=== PATIENT | female | born 1990 | race Two or more races ===

== ENCOUNTER 2021-05-02 12:30 | Emergency (ER) | payer MEDICAID, OTHER ==
[~2021-05-02] VITALS: Ht 160 cm; Wt 81.6 kg
[2021-05-02 14:34] LABS: Basophils # (auto) 0.1 10 ^3/uL (0-0.2); Basophils % (auto) 0.7 % (0.0-2.0); Eosinophils # (auto) 0.1 10 ^3/uL (0-0.8); Eosinophils % (auto) 1.5 % (0.0-7.0); Hemoglobin 13.1 g/dL (12.2-16.2); Lymphocytes # (auto) 2.3 10 ^3/uL (0.4-5.4); Lymphocytes % (auto) 30.5 % (10.0-50.0); Mean Corpuscular Hgb Conc. 33.5 g/dL (32.0-36.0); Mean Corpuscular Volume 83.5 fL (80.0-100.0); Monocytes # (auto) 0.3 10 ^3/uL (0-1.3); Monocytes % (auto) 3.7 % (0.0-12.0); Neutrophils # (auto) 4.7 10 ^3/uL (1.6-8.6); Neutrophils % (auto) 63.6 % (37.0-80.0); Nucleated Red Blood Cells % 0.1 %; Red Blood Cells 4.67 10^6/uL (4.0-5.20); Red Cell Distribution Width 14.2 % (11.8-14.3); White Blood Cell 7.5 10^3/uL (4.4-10.8)
[2021-05-02 15:19] LABS: Albumin 4.1 g/dL (3.4-5.0); BUN/Creatinine Ratio 23.1; Bilirubin, Total 0.4 mg/dL (0.2-1.0); Calcium 9.5 mg/dL (8.5-10.1); Total Protein 8.4 g/dL (6.4-8.2)
[2021-05-02 17:00] VITALS: BP 124/71
== END 2021-05-02 17:12 | disposition home or self-care (01) ==
LOC: ER 12:30
DX: K21.9 Gastro-esophageal reflux disease without esophagitis (principal); Z88.6 Allergy status to analgesic agent
CPT/HCPCS: 36415; 76705; 80053; 83690; 85025

== ENCOUNTER → 2021-07-11 | Outpatient (CLI) | payer MEDICAID ==
[2021-07-11 11:32] LABS: Basophils # (auto) 0 10 ^3/uL (0-0.2); Basophils % (auto) 0.2 % (0.0-2.0); Eosinophils # (auto) 0 10 ^3/uL (0-0.8); Eosinophils % (auto) 0.5 % (0.0-7.0); Hemoglobin 12.1 g/dL (12.2-16.2); Lymphocytes # (auto) 1.7 10 ^3/uL (0.4-5.4); Lymphocytes % (auto) 21.1 % (10.0-50.0); Mean Corpuscular Hemoglobin 28.1 pg (28.0-32.0); Mean Corpuscular Hgb Conc. 32.8 g/dL (32.0-36.0); Mean Corpuscular Volume 85.7 fL (80.0-100.0); Monocytes # (auto) 0.2 10 ^3/uL (0-1.3); Monocytes % (auto) 2.5 % (0.0-12.0); Neutrophils # (auto) 6.1 10 ^3/uL (1.6-8.6); Neutrophils % (auto) 75.7 % (37.0-80.0); Red Blood Cells 4.31 10^6/uL (4.0-5.20); Red Cell Distribution Width 14.5 % (11.8-14.3)
[2021-07-11 11:50] LABS: Amphetamine Screen, Urine NEGATIVE (NEGATIVE); Barbiturate Scree,Urine NEGATIVE (NEGATIVE); Benzodiazephine Screen, Urine NEGATIVE (NEGATIVE); Cannabinoid Screen, Urine NEGATIVE (NEGATIVE); Cocaine Screen, Urine NEGATIVE (NEGATIVE); Opiate Scree,Urine NEGATIVE (NEGATIVE); Phencyclidine Screen, Urine NEGATIVE (NEGATIVE)
[2021-07-12 07:07] LABS: RPR Non Reactive (Non Reactive)
== END | disposition home or self-care (01) ==
LOC: LAB 10:30
PROVIDERS: ATTEND Obstetrics & Gynecology
DX: Z31.430 Encounter of female for testing for genetic disease carrier status for procreative management (principal); Z34.00 Encounter for supervision of normal first pregnancy, unspecified trimester; Z36.0 Encounter for antenatal screening for chromosomal anomalies; N39.0 Urinary tract infection, site not specified
CPT/HCPCS: 36415; 80307; 83036; 84112; 84702; 85025; 86592; 86703; 86762; 86850; 86900; 86901; 87086; 87340

== ENCOUNTER → 2021-11-01 | Outpatient (CLI) | payer MEDICAID ==
[2021-11-01 09:04] LABS: Basophils # (auto) 0 10 ^3/uL (0-0.2); Basophils % (auto) 0.2 % (0.0-2.0); Eosinophils # (auto) 0.1 10 ^3/uL (0-0.8); Eosinophils % (auto) 0.7 % (0.0-7.0); Hematocrit 33.5 % (36.0-46.0); Hemoglobin 10.8 g/dL (12.2-16.2); Lymphocytes # (auto) 1.8 10 ^3/uL (0.4-5.4); Lymphocytes % (auto) 23.7 % (10.0-50.0); Mean Corpuscular Hemoglobin 27.1 pg (28.0-32.0); Mean Corpuscular Hgb Conc. 32.3 g/dL (32.0-36.0); Mean Corpuscular Volume 84.1 fL (80.0-100.0); Monocytes # (auto) 0.3 10 ^3/uL (0-1.3); Monocytes % (auto) 3.4 % (0.0-12.0); Neutrophils # (auto) 5.5 10 ^3/uL (1.6-8.6); Nucleated Red Blood Cells % 0.1 %; Red Blood Cells 3.98 10^6/uL (4.0-5.20); Red Cell Distribution Width 14.4 % (11.8-14.3); White Blood Cell 7.6 10^3/uL (4.4-10.8)
== END | disposition home or self-care (01) ==
LOC: LAB 08:46
PROVIDERS: ATTEND Obstetrics & Gynecology
DX: Z34.80 Encounter for supervision of other normal pregnancy, unspecified trimester (principal); O99.810 Abnormal glucose complicating pregnancy
CPT/HCPCS: 36415; 82951; 83036; 85025

== ENCOUNTER 2021-12-16 03:47 | Emergency (ER) | payer MEDICAID ==
[~2021-12-16] VITALS: Ht 160 cm; Wt 214.0 kg
[2021-12-16] MEDS ORDERED: AMOX-277 PO (07:07)
[2021-12-16] MEDS ORDERED: ACET-1080 PO (07:07)
[2021-12-16 07:15] VITALS: BP 118/64
[2021-12-16] MEDS ORDERED: ACETAMINOPHEN 500 MG TAB PO ONE (07:15)
== END 2021-12-16 07:25 | disposition home or self-care (01) ==
LOC: ER 03:47
DX: H66.93 Otitis media, unspecified, bilateral (principal); Z88.6 Allergy status to analgesic agent

== ENCOUNTER → 2022-01-04 | Outpatient (CLI) | payer MEDICAID ==
[~2022-01-04] MED LIST: ACET-1080 PO; AMOX-277 PO
[2022-01-04 09:54] LABS: Basophils # (auto) 0 10 ^3/uL (0-0.2); Eosinophils # (auto) 0.1 10 ^3/uL (0-0.8); Lymphocytes # (auto) 1.9 10 ^3/uL (0.4-5.4); Mean Corpuscular Hemoglobin 26.8 pg (28.0-32.0); Monocytes # (auto) 0.3 10 ^3/uL (0-1.3)
[2022-01-04 09:56] LABS: Basophils % (auto) 0.3 % (0.0-2.0); Hematocrit 32.8 % (36.0-46.0); Hemoglobin 10.6 g/dL (12.2-16.2); Lymphocytes % (auto) 25.9 % (10.0-50.0); Mean Corpuscular Hgb Conc. 32.4 g/dL (32.0-36.0); Mean Corpuscular Volume 82.7 fL (80.0-100.0); Monocytes % (auto) 4.2 % (0.0-12.0); Neutrophils % (auto) 68.6 % (37.0-80.0); Nucleated Red Blood Cells % 0.1 %; Red Blood Cells 3.97 10^6/uL (4.0-5.20); Red Cell Distribution Width 15.1 % (11.8-14.3); White Blood Cell 7.3 10^3/uL (4.4-10.8)
[2022-01-05 06:06] LABS: RPR Non Reactive (Non Reactive)
== END | disposition home or self-care (01) ==
LOC: LAB 09:40
PROVIDERS: ATTEND Obstetrics & Gynecology
DX: Z11.3 Encounter for screening for infections with a predominantly sexual mode of transmission (principal)
CPT/HCPCS: 36415; 85025; 86592

== ENCOUNTER 2022-01-15 00:10 | Inpatient (IN) | payer MEDICAID ==
[~2022-01-15] VITALS: Ht 160 cm; Wt 97.1 kg
[2022-01-15] MEDS ORDERED: PROMETHAZINE HCL 25 MG/ML 1ML IV PRN (00:30)
[2022-01-15] MEDS ORDERED: LIDOCAINE 2%HCL (LOCAL ANESTH.) INJ 10ml MDV IJ PRN (00:30)
[2022-01-15] MEDS ORDERED: LACT. RINGERS/OXYTOCIN 20UNITS 500 ML IV ONE ×2 (00:45→01:15)
[2022-01-15] MEDS: LACTATED RINGER'S 1,000 ML IV SCH ×2 (01:00→06:41)
[2022-01-15] MEDS ORDERED: LIDOCAINE 2%HCL (LOCAL ANESTH.) INJ 20ML MDV ONE (01:03)
[2022-01-15] MEDS: DERMOPLAST 60ML BOTTLE TOP PRN ×2 (01:09→13:19)
[2022-01-15] MEDS: PHISODERM TOP SOLN 240ML BTL TOP PRN ×2 (01:09→13:20)
[2022-01-15] MEDS: WITCH HAZEL-GLYCERIN PAD TOP PRN ×2 (01:09→13:20)
[2022-01-15 01:33] LABS: Alcohol, Urine < 3.0 mg/dL (0-10); Amphetamine Screen, Urine NEGATIVE (NEGATIVE); Barbiturate Scree,Urine NEGATIVE (NEGATIVE); Benzodiazephine Screen, Urine NEGATIVE (NEGATIVE); Cannabinoid Screen, Urine NEGATIVE (NEGATIVE); Cocaine Screen, Urine NEGATIVE (NEGATIVE); Opiate Scree,Urine NEGATIVE (NEGATIVE); Phencyclidine Screen, Urine NEGATIVE (NEGATIVE)
[2022-01-15 01:40] LABS: Basophils # (auto) 0.1 10 ^3/uL (0-0.2); Basophils % (auto) 0.6 % (0.0-2.0); Eosinophils # (auto) 0 10 ^3/uL (0-0.8); Eosinophils % (auto) 0.3 % (0.0-7.0); Hematocrit 30.5 % (36.0-46.0); Hemoglobin 10.3 g/dL (12.2-16.2); Lymphocytes % (auto) 25.4 % (10.0-50.0); Mean Corpuscular Hemoglobin 27.5 pg (28.0-32.0); Mean Corpuscular Hgb Conc. 33.9 g/dL (32.0-36.0); Mean Corpuscular Volume 81.2 fL (80.0-100.0); Monocytes # (auto) 0.3 10 ^3/uL (0-1.3); Monocytes % (auto) 3.7 % (0.0-12.0); Neutrophils # (auto) 5.4 10 ^3/uL (1.6-8.6); Red Blood Cells 3.76 10^6/uL (4.0-5.20); Red Cell Distribution Width 15.8 % (11.8-14.3); White Blood Cell 7.8 10^3/uL (4.4-10.8)
[2022-01-15 01:56] LABS: INR 0.93 (0.9-1.15); Partial Thromboplastin Time 27.3 sec (24.6-33.4)
[2022-01-15 01:58] LABS: Albumin 2.7 g/dL (3.4-5.0); Calcium 8.7 mg/dL (8.5-10.1); Potassium 3.7 mmol/L (3.5-5.1)
[2022-01-15 02:02] LABS: Bilirubin, Total 0.3 mg/dL (0.2-1.0); Total Protein 7.1 g/dL (6.4-8.2)
[2022-01-15 02:10] LABS: Urine Bacteria NONE SEEN /hpf (None Seen); Urine Blood 3+ /uL (Negative); Urine Mucus FEW (None Seen); Urine Specific Gravity 1.023 (1.001-1.035); Urine WBC 11 /hpf (0 - 5)
[2022-01-15] MEDS ORDERED: ROPIVACAINE HCL 200 ML EPI SCH ×2 (03:00→07:15)
[2022-01-15] MEDS ORDERED: fentaNYL CITRATE 100 MCG/2 ML VL IV ONE ×3 (03:00→07:15)
[2022-01-15] MEDS ORDERED: ePHEDrine SULFATE 50 MG/ML AMP IV ONE ×2 (03:00→07:15)
[2022-01-15] MEDS ORDERED: NALOXONE HCL 0.4 MG/ML VIAL IV ONE ×2 (03:00→07:15)
[2022-01-15] MEDS ORDERED: LACTATED RINGER'S 1,000 ML IV ONE (03:00)
[2022-01-15] MEDS ORDERED: LIDOCAINE HCL 2 %PF INJ 10ML AMP IJ ONE (03:00)
[2022-01-15] MEDS ORDERED: SODIUM CHLORIDE LOCK 10 ML ONE ×2 (04:30→05:21)
[2022-01-15] MEDS ORDERED: fentaNYL CITRATE 100 MCG/2 ML VL ONE (04:48)
[2022-01-15] MEDS ORDERED: SODIUM CHLOR 0.9% PF (SALINE LOCK) 10ML VIAL/SYR IV ONE (05:00)
[2022-01-15] MEDS ORDERED: CARBOPROST TROMETHAMINE 250 MCG/1ML VIAL IM ONE (06:15)
[2022-01-15] MEDS ORDERED: miSOPROStol 100 mcg TAB SL PRN (06:15)
[2022-01-15] MEDS ORDERED: miSOPROStol 100 mcg TAB PR PRN (06:15)
[2022-01-15] MEDS ORDERED: METHYLERGONOVINE MALEATE 0.2 MG/ML AMP IM PRN (06:15)
[2022-01-15] MEDS ORDERED: LACT. RINGERS/OXYTOCIN 20UNITS 1,000 ML IV SCH (09:30)
[2022-01-15] MEDS: DIPHENOXYLATE W/ATROPINE 2.5 MG TAB PO SCH ×2 (10:00→22:00)
[2022-01-15] MEDS ORDERED: DOCUSATE SOD 100 MG CAP PO PRN (13:00)
[2022-01-15] MEDS ORDERED: ONDANSETRON ODT 4 MG TAB PO PRN (13:00)
[2022-01-15] MEDS ORDERED: ACETAMINOPHEN 325 MG TAB PO PRN (13:00)
[2022-01-15 14:54] VITALS: BP 113/56
[2022-01-15] MEDS: IBUPROFEN 800 MG TAB PO SCH (17:57)
[2022-01-15 18:30] VITALS: BP 113/70
[2022-01-15 23:00] VITALS: BP 115/15
[2022-01-16] MEDS: IBUPROFEN 800 MG TAB PO SCH ×2 (00:22→05:50)
[2022-01-16 03:00] VITALS: BP 139/60
[2022-01-16 06:06] LABS: RPR Non Reactive (Non Reactive)
[2022-01-16] MEDS ORDERED: DOCU100C10 PO (06:06)
[2022-01-16] MEDS ORDERED: IBUP800T26 PO (06:06)
[2022-01-16 06:49] VITALS: BP 131/84
[2022-01-16 13:00] VITALS: BP 117/69
== END 2022-01-16 16:52 | disposition home or self-care (01) | DRG 560 ==
LOC: LDRP 00:10 → OBSVTOIN 00:26 → LDRP 03:25
PROVIDERS: ADMIT Obstetrics & Gynecology; ATTEND Obstetrics & Gynecology
PROC: 10E0XZZ Delivery of Products of Conception, External Approach (ICD-10-PCS; principal; 2022-01-15)
PROC: 3E0R3BZ Introduction of Anesthetic Agent into Spinal Canal, Percutaneous Approach (ICD-10-PCS; 2022-01-15)
PROC: 00HU33Z Insertion of Infusion Device into Spinal Canal, Percutaneous Approach (ICD-10-PCS; 2022-01-15)
DX: O80 Encounter for full-term uncomplicated delivery (principal); Z37.0 Single live birth; Z20.822 Contact with and (suspected) exposure to COVID-19; Z3A.38 38 weeks gestation of pregnancy; Z88.5 Allergy status to narcotic agent
CPT/HCPCS: 36415; 59025; 59409; 62282; 80053; 80307; 81001; 81002; 84112; 85025; 85610; 85730; 86592; 86850; 86900; 86901; 94760; 96360; 96361; 96365; 96366; G0378; J2590

== ENCOUNTER 2023-08-06 03:18 | Emergency (ER) | payer MEDICAID ==
[~2023-08-06] VITALS: Ht 162.6 cm; Wt 88.6 kg
[~2023-08-06 03:18] MED LIST changes: -AMOX-277 PO; +AMOX875T4 PO; +DOCU-265 PO; +IBUP-1455 PO
[2023-08-06 03:58] LABS: Basophils # (auto) 0 10 ^3/uL (0-0.2); Basophils % (auto) 0.5 % (0.0-2.0); Eosinophils # (auto) 0.1 10 ^3/uL (0-0.8); Eosinophils % (auto) 2.1 % (0.0-7.0); Hematocrit 36.9 % (36.0-46.0); Hemoglobin 12.3 g/dL (12.2-16.2); Lymphocytes # (auto) 2.5 10 ^3/uL (0.4-5.4); Lymphocytes % (auto) 38.2 % (10.0-50.0); Mean Corpuscular Hemoglobin 27.7 pg (28.0-32.0); Mean Corpuscular Hgb Conc. 33.4 g/dL (32.0-36.0); Monocytes # (auto) 0.3 10 ^3/uL (0-1.3); Monocytes % (auto) 4.7 % (0.0-12.0); Neutrophils # (auto) 3.5 10 ^3/uL (1.6-8.6); Neutrophils % (auto) 54.5 % (37.0-80.0); Nucleated Red Blood Cells % 0.1 %; Red Blood Cells 4.45 10^6/uL (4.0-5.20); Red Cell Distribution Width 13.9 % (11.8-14.3); White Blood Cell 6.4 10^3/uL (4.4-10.8)
[2023-08-06 04:14] LABS: Alanine Aminotransferase 21 U/L (7-40); Albumin 4.3 g/dL (3.2-4.8); Alkaline Phosphatase 78 U/L (46-116); Anion Gap 6 (5-15); Aspartate Aminotransferase 14 U/L (13-40); BUN/Creatinine Ratio 16.9 (10.0-20.0); Bilirubin, Total 0.3 mg/dL (0.2-1.0); Blood Urea Nitrogen 10 mg/dL (9-23); Calcium 9.7 mg/dL (8.7-10.4); Carbon Dioxide 24 mmol/L (20-30); Chloride 109 mmol/L (98-107); Glucose 104 mg/dL (74-106); Potassium 3.7 mmol/L (3.5-5.1); Sodium 139 mmol/L (136-145); Total Protein 7.7 g/dL (5.7-8.2)
[2023-08-06 06:25] VITALS: BP 146/94; PULSE 70; RESP 16; O2SAT 98
== END 2023-08-06 06:26 | disposition home or self-care (01) ==
LOC: ER 03:18
DX: M79.602 Pain in left arm (principal); M25.512 Pain in left shoulder; R07.9 Chest pain, unspecified; Z88.6 Allergy status to analgesic agent
CPT/HCPCS: 36415; 71045; 80053; 84484; 85025; 93005

== ENCOUNTER 2024-03-27 17:43 | Emergency (ER) | payer MEDICAID ==
[~2024-03-27] VITALS: Ht 162.6 cm; Wt 94.3 kg
--- NOTE | 2024-03-27 19:10 | ED.PDOC ---
Eye-HPI HPI Comments This is a 33-year-old female presents to the ED chief complaint flu-like s ymptoms x2 days. Patient reports symptoms of headache, fever, chills, bilateral ear pain, cough and dry mouth. Patient reports she is 18 weeks , however denies any abdominal pain, flank pain, vaginal bleeding or spotting. Denies difficulty breathing, shortness of breath, dizziness or chest pain. Chief Complaint: Flu like Time Seen by MD: 18:12 Primary Care Provider: Christopher RODRÍGUEZ Reviewed Notes: Nurses Notes, Medications, Allergies Allergies: Coded Allergies: Codeine (Verified Allergy, Unknown, 05/02/21) Home Meds Active Scripts Ibuprofen Micronized (Ibuprofen) 800 Mg Tab, 800 MG PO Q6HR PRN, #20 TAB Prov:MERCY JAIME DO 01/16/22 Docusate Sodium (Docusate Sodium) 100 Mg Cap, 100 MG PO HS PRN, #30 CAP Prov:MERCY JAIME DO 01/16/22 Acetaminophen (Tylenol 8 Hour Arthritis) 650 Mg Tab, 650 MG PO TID, #30 TAB Prov:NORBERTO ALONZO 12/16/21 Amoxicillin & Pot Clavulanate (Amoxicillin/Potassium Cla) 875 Mg Tab, 875 MG PO BID, #20 TAB Prov:NORBERTO ALONZO 12/16/21 Information Source: Patient Mode of Arrival: Ambulatory Past Medical History PAST MEDICAL HISTORY: Denies Surgical History: Denies all surgeries CUSTODIAL LABORER History: Denies all 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 LABORER Hx Family History Family History: Family hx of DM, Family hx of heart kim, Family hx of HTN Social History Smoker: Non-Smoker Alcohol: Denies ETOH Use Drugs: Denies Drug Use Lives In: Home Constitutional: reports: chills, fatigue, fever; denies: diaphoresis, malaise, sweats, weakness, others EENTM: reports: ear pain, nasal discharge, throat pain, throat swelling; denies: blurred vision, double vision, ear bleeding, ear discharge, ear drainage, ear ringing, eye pain, eye redness, hearing loss, mouth pain, mouth swelling, nose bleeding, nose congestion, nose pain, photophobia, tearing, voice changes, others Respiratory: reports: cough; denies: hemoptysis, orthopnea, SOB at rest, shortness of breath, SOB with excertion, stridor, wheezing, others Cardiovascular: denies: chest pain, dizzy spells, diaphoresis, Dyspnea on exertion, edema, irregular heart beat, left arm pain, lightheadedness, palpitations, PND, syncope, others Gastrointestinal: denies: abdomen distended, abdominal pain, blood streaked bowels, constipated, diarrhea, dysphagia, difficulty swallowing, hematemesis, melena, nausea, poor appetite, poor fluid intake, rectal bleeding, rectal pain, vomiting, others Genitourinary: denies: abnormal vagina bleeding, burning, dyspareunia, dysuria, flank pain, frequency, hematuria, incontinence, pain, , vagina discharge, urgency, others Neurological: reports: headache; denies: dizziness, fainting, left sided numbness, left sided weakness, numbness, paresthesia, pre-existing deficit, right sided numbness, right sided weakness, seizure, speech problems, tingling, tremors, weakness, others Musculoskeletal: denies: back pain, gout, joint pain, joint swelling, muscle pain, muscle stiffness, neck pain, others Integumetry: denies: bruises, change in color, change in hair/nails, dryness, laceration, lesions, lumps, rash, wounds, others Allergic/Immunocompromised: denies: Difficulty Healing, Frequent Infections, Hives, Itching, others Hematologic/Lymphatic: denies: anemia, blood clots, easy bleeding, easy bruising, swollen glands, others Endocrine: denies: excessive hunger, excessive sweating, excessive thirst, excessive urination, flushing, intolerance to cold, intolerance to heat, unexplained weight gain, unexplained weight loss, others Psychiatric: denies: anxiety, bipolar disorder, depression, hopeless, panic disorder, schizophrenia, sleepless, suicidal, others Physical Exam General Appearance: No Apparent Distress, Normal HEENT: Pharyngeal Erythema, TMs Normal Neck: Full Range of Motion, Non-Tender Respiratory: Lungs Clear, No Respiratory Distress, Normal Breath Sounds Cardiovascular: No Edema, No JVD, No Murmur, No Gallop, Normal Peripheral Pulses, Regular Rate/Rhythm Breast Exam: Deferred Gastrointestinal: No Organomegaly, Non Tender, No Pulsatile Mass, Normal Bowel Sounds, Soft Genitalia: Deferred Pelvic: Deferred Rectal: Deferred Extremities: Normal capillary refill, Normal inspection, Normal range of motion, Non-tender, No pedal edema Musculoskeletal : Apperance: Normal Neurologic: Alert, 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 Was a procedure done?: No EENT DIFF Eye: N/A Sore Throat: Viral Pharyngitis X-Ray, Labs, Meds, VS Vital Signs Date Time Temp Pulse Resp B/P (MAP) Pulse Ox O2 Delivery O2 Flow Rate FiO2 03/27/24 18:00 18 97 Room Air* 0 21 03/27/24 17:56 100.3 123 18 129/81 (97) 97 Lab Test 03/27/24 18:43 Range/Units Influenza Type A Antigen Positive Negative Influenza Type B Antigen Negative Negative X-Ray, Labs, Meds, VS Comment Flu a and B swab positive flu a. We will treat with Tamiflu. Advised to rest increase p.o. fluids with electrolytes. Advised only use Tylenol since she has 18 weeks for pain or fever. Advised to follow up with PCP in 2-3 days as necessary. ER return precautions given. Patient indicated understanding. Agrees with discharge plan of care. Time of 1ST Reevaluation: 19:27 Reevaluation 1ST: Improved Patient Education/Counseling: Diagnosis, Treatment, Prognosis, Need For Follow Up Family Education/Counseling: No Family Present Departure 1 Departure Time of Disposition: 19:27 Impression: Primary Impression: Influenza A Disposition: HOME / SELF CARE / HOMELESS Condition: Stable e-Prescriptions Oseltamivir Phosphate (Tamiflu) 75 Mg Cap 1 CAP PO BID for 5 Days, #10 CAP Prov: MANNIE JENNINGS 03/27/24 Discharged With: Self Critical Care Note Critical Care Time?: No Stability Stability form required: MANNIE Chavez Mar 27, 2024 19:10
[2024-03-27 19:21] LABS: Rapid Influenza A Positive (Negative); Rapid Influenza B Negative (Negative)
[2024-03-27] MEDS ORDERED: TAMIFLU PO (19:28)
[2024-03-27] MEDS: ACETAMINOPHEN 500 MG TAB PO ONE ×2 (19:37→20:55)
[2024-03-27 19:44] VITALS: BP 123/75; PULSE 124; RESP 19; O2SAT 97
[2024-03-27] MEDS: SODIUM CHLORIDE 0.9% 1,000 ML IV ONE (20:52)
[2024-03-27 21:39] VITALS: TEMP 99.3
== END 2024-03-27 21:45 | disposition home or self-care (01) ==
LOC: ER 17:43
DX: O99.512 Diseases of the respiratory system complicating pregnancy, second trimester (principal); J10.1 Influenza due to other identified influenza virus with other respiratory manifestations; Z3A.18 18 weeks gestation of pregnancy; Z88.5 Allergy status to narcotic agent; Z79.899 Other long term (current) drug therapy
CPT/HCPCS: 87804; 96360; 99285; J7030

== ENCOUNTER 2024-03-31 04:19 | Emergency (ER) | payer MEDICAID ==
[~2024-03-31] VITALS: Ht 162.6 cm; Wt 92.2 kg
[~2024-03-31 04:19] MED LIST changes: +TAMIFLU PO
--- NOTE | 2024-03-31 04:56 | ED.PDOC ---
History of Present Illness HPI Comments 33-year-old female presents with a chief complaint of ear pain, sore throat. Patient states that her left ear has been hurting her since being diagnosed last week with Flu A at this facility. Patient was prescribed Tamiflu which she states she has been taking. Patient is 19 weeks and has only been t aking Tylenol. Chief Complaint: Earache Time Seen by MD: 04:48 Primary Care Provider: Christopher RODRÍGUEZ Reviewed Notes: Nurses Notes, Medications, Allergies Allergies: Coded Allergies: Codeine (Verified Allergy, Unknown, 05/02/21) Home Meds Active Scripts Oseltamivir Phosphate (Tamiflu) 75 Mg Cap, 1 CAP PO BID for 5 Days, #10 CAP Prov:MANNIE JENNINGS 03/27/24 Ibuprofen Micronized (Ibuprofen) 800 Mg Tab, 800 MG PO Q6HR PRN, #20 TAB Prov:MERCY JAIME DO 01/16/22 Docusate Sodium (Docusate Sodium) 100 Mg Cap, 100 MG PO HS PRN, #30 CAP Prov:MERCY JAIME DO 01/16/22 Acetaminophen (Tylenol 8 Hour Arthritis) 650 Mg Tab, 650 MG PO TID, #30 TAB Prov:NORBERTO ALONZO 12/16/21 Amoxicillin & Pot Clavulanate (Amoxicillin/Potassium Cla) 875 Mg Tab, 875 MG PO BID, #20 TAB Prov:NORBERTO ALONZO 12/16/21 Information Source: Patient Mode of Arrival: Ambulatory Severity: Moderate Timing: Days Duration: Since onset Prehospital treatment: None Vital Signs Vital Signs Date Time Temp Pulse Resp B/P (MAP) Pulse Ox O2 Delivery O2 Flow Rate FiO2 03/31/24 04:36 98.0 93 16 125/75 (92) 98 Physical Exam General: Awake, alert and oriented. No acute distress. Skin: Skin in warm, dry and intact without rashes or lesions. HEENT: The head is normocephalic and atraumatic. Conjunctivae are clear without exudates or hemorrhage. Sclera is non-icteric. Posterior pharyngeal erythema with no exudates, uvula in midline. Bilateral tympanic membranes no erythema, bulging. Positive bilateral anterior cervical tender lymphadenopathy. Neck: Normal range of motion. No JVD. Neck is supple. Cardiac: Regular rate Respiratory: No signs of respiratory distress. No Stridor. Extremities: Upper and lower extremities are atraumatic in appearance without t enderness or deformity. Neurological: The patient is awake, alert and oriented to person, place, and time with normal speech. Speech is clear. There is no facial asymmetry. Psychiatric: Appropriate mood and affect. Good judgement and insight. No visual or auditory hallucinations. No suicidal or homicidal ideation. Review of Systems: As stated in HPI Past Medical History PAST MEDICAL HISTORY: Denies Surgical History: Denies all surgeries TUNNEL MAN History: Denies all TUNNEL MAN Hx Family History Family History: Family hx of DM, Family hx of heart kim, Family hx of HTN Social History Smoker: Non-Smoker Alcohol: Denies ETOH Use Drugs: Denies Drug Use Lives In: Home Was a procedure done? Was a procedure done?: No Differential Dx Considerations may include: Pharyngitis, bronchitis, pneumonia X-Ray, Labs, Meds, VS Vital Signs Date Time Temp Pulse Resp B/P (MAP) Pulse Ox O2 Delivery O2 Flow Rate FiO2 03/31/24 04:36 98.0 93 16 125/75 (92) 98 Lab Test 03/31/24 06:12 Range/Units Group A Streptococcus Rapid Negative Time of 1ST Reevaluation: 05:18 Reevaluation 1ST: Unchanged Time of 2ND Reevaluation: 06:40 Reevaluation 2ND: Improved Patient Education/Counseling: Diagnosis, Treatment, Prognosis, Need For Follow Up Family Education/Counseling: No Family Present Departure 1 Departure Time of Disposition: 05:47 Impression: Primary Impression: Ear pain Qualified Codes: H92.02 - Otalgia, left ear Additional Impressions: Sore throat Influenza Disposition: 01 HOME / SELF CARE / HOMELESS Condition: Fair Additional Instructions: ED DISCHARGE INSTRUCTIONS Instructions: Please read all instructions provided in this packet carefully. Although you have been discharged from the Emergency Department, this does not mean that you have a "clean bill of health". No definitive diagnosis for your symptoms has been made today. It is possible that you are in the process of developing a serious illness. This is why you must return to the ED without fail if any new or worsening symptoms (especially if your symptoms include chest pain, trouble breathing, abdominal pain, fever, headache, confusion, trouble seeing, or trouble walking) It is also very important that you see a primary care doctor within the next 3-5 days to follow up. If you are unable to get an appointment, return to the ED for re-evaluation. Discharged With: Self Comments 33-year-old female 19 weeks he was diagnosed with influenza, on Tamiflu. She has significant pharyngeal erythema and sore throat. No stridor or airway compromise. Do not suspect peritonsillar abscess. Patient is nontoxic appearing, afebrile. Symptoms likely secondary to viral infection however given current rapid strep screen pending. Critical Care Note Critical Care Time?: No Stability Stability form required: No Heart Score Heart Score: Heart Score Response (Comments) Value History N/A 0 EKG N/A 0 Age N/A 0 Risk Factors N/A 0 Troponin N/A 0 Total 0 I personally scribed for MARIANN THOMPSON MD ([email or web address]) on 03/31/24 at 04:56. Electronically submitted by Jose Joseph ([email or web address]). MARIANN THOMPSON MD Mar 31, 2024 04:56 STEFANO CHAUHAN MD Mar 31, 2024 06:41
[2024-03-31 06:54] LABS: Rapid Strep A Screen-Throat Negative
[2024-03-31 07:33] VITALS: BP 116/69; PULSE 85; RESP 16; TEMP 98.5; O2SAT 95
== END 2024-03-31 07:45 | disposition home or self-care (01) ==
LOC: ER 04:19
DX: O99.512 Diseases of the respiratory system complicating pregnancy, second trimester (principal); J11.1 Influenza due to unidentified influenza virus with other respiratory manifestations; H92.02 Otalgia, left ear; Z3A.19 19 weeks gestation of pregnancy; Z88.5 Allergy status to narcotic agent; Z79.899 Other long term (current) drug therapy
CPT/HCPCS: 87070; 87880

== ENCOUNTER 2024-05-26 11:52 | Emergency (ER) | payer MEDICAID ==
[~2024-05-26] VITALS: Ht 162.6 cm; Wt 92.8 kg
[~2024-05-26 11:52] MED LIST changes: -TAMIFLU PO
[2024-05-26] MEDS: SODIUM CHLORIDE 0.9% 1,000 ML IV ONE (12:15)
[2024-05-26 12:23] LABS: Basophils # (auto) 0 10 ^3/uL (0-0.2); Basophils % (auto) 0.3 % (0.0-2.0); Eosinophils # (auto) 0.1 10 ^3/uL (0-0.8); Eosinophils % (auto) 1.1 % (0.0-7.0); Hematocrit 34.2 % (36.0-46.0); Hemoglobin 11.7 g/dL (12.2-16.2); Lymphocytes # (auto) 1.9 10 ^3/uL (0.4-5.4); Lymphocytes % (auto) 22.4 % (10.0-50.0); Mean Corpuscular Hemoglobin 28.6 pg (28.0-32.0); Mean Corpuscular Hgb Conc. 34.2 g/dL (32.0-36.0); Mean Corpuscular Volume 83.5 fL (80.0-100.0); Monocytes # (auto) 0.4 10 ^3/uL (0-1.3); Monocytes % (auto) 4.2 % (0.0-12.0); Neutrophils # (auto) 6.2 10 ^3/uL (1.6-8.6); Platelet Count (auto) 314 10^3/uL (140-450); Red Blood Cells 4.09 10^6/uL (4.0-5.20); Red Cell Distribution Width 14.8 % (11.8-14.3); White Blood Cell 8.6 10^3/uL (4.4-10.8)
[2024-05-26 12:30] LABS: Urine Bacteria None Seen /hpf (None Seen)
[2024-05-26 12:41] LABS: Urine Blood Negative /uL (Negative); Urine Clarity Turbid (Clear); Urine Color Yellow (Yellow); Urine Hyaline Cast FEW /lpf (0 - 2); Urine Protein, UAD TRACE (Negative); Urine Specific Gravity 1.023 (1.001-1.035); Urine Squamous Epithelial Cell MOD /hpf (<5); Urine Urobilinogen Normal (Negative); Urine WBC 2 /HPF (0-5)
[2024-05-26 12:49] LABS: Alanine Aminotransferase 18 U/L (7-40); Albumin 4.5 g/dL (3.2-4.8); Alkaline Phosphatase 67 U/L (46-116); Anion Gap 8 (5-15); Aspartate Aminotransferase 24 U/L (13-40); BUN/Creatinine Ratio 15.1 (10.0-20.0); Bilirubin, Total 0.4 mg/dL (0.2-1.0); Calcium 9.6 mg/dL (8.7-10.4); Carbon Dioxide 24 mmol/L (20-31); Chloride 104 mmol/L (98-107); Glucose 89 mg/dL (74-106); Potassium 3.9 mmol/L (3.5-5.1); Sodium 136 mmol/L (136-145); Total Protein 7.4 g/dL (5.7-8.2)
[2024-05-26 12:57] LABS: Blood Urea Nitrogen 8 mg/dL (9-23)
[2024-05-26 13:00] VITALS: BP 111/73; PULSE 103; RESP 16; TEMP 98.5; O2SAT 99
--- NOTE | 2024-05-26 14:10 | ED.PDOC ---
HPI Comments 33y F who presents to the ED for chief complaint of chest pain. Pt states she is currently 27 weeks and states she has been having chest pain since 2 days prior. pt states the pain is located by the L side of her chest radiating to the R. Pt states the pain is cosntant, dull and pressure like in nature, with noted exacerbation of pain while sitting or laying down and no relieving factors. Pt has no associated symptoms but otherwise denies shortness of breath, diaphoresis, palpitations, nausea, vomiting, diarrhea, fever, cough, headache, or dizziness. Pt otherwise denies these symptoms in the past. Pt denies any other symptoms at this time. Chief Complaint: Chest Pain Time Seen by MD: 14:08 Primary Care Provider: [facility] Reviewed Notes: Nurses Notes Allergies: Coded Allergies: Codeine (Verified Allergy, Unknown, 05/02/21) Home Meds Active Scripts Ibuprofen Micronized (Ibuprofen) 800 Mg Tab, 800 MG PO Q6HR PRN, #20 TAB Prov:MERCY JAIME Y DO 01/16/22 Docusate Sodium (Docusate Sodium) 100 Mg Cap, 100 MG PO HS PRN, #30 CAP Prov:MERCY JAIME DO 01/16/22 Acetaminophen (Tylenol 8 Hour Arthritis) 650 Mg Tab, 650 MG PO TID, #30 TAB Prov:NORBERTO ALONZO 12/16/21 Amoxicillin & Pot Clavulanate (Amoxicillin/Potassium Cla) 875 Mg Tab, 875 MG PO BID, #20 TAB Prov:NORBERTO ALONZO 12/16/21 Information Source: Patient Mode of Arrival: Ambulatory Brought in by: self Past Medical History PAST MEDICAL HISTORY: Denies Surgical History: Denies all surgeries WELCOME CENTER ATTENDANT History: Denies all WELCOME CENTER ATTENDANT Hx Family History Family History: Family hx of DM, Family hx of heart kim, Family hx of HTN Social History Smoker: Non-Smoker Alcohol: Denies ETOH Use Drugs: Denies Drug Use Lives In: Home Constitutional: denies: chills, diaphoresis, fatigue, fever, malaise, sweats, weakness, others EENTM: denies: blurred vision, double vision, ear bleeding, ear discharge, ear drainage, ear pain, ear ringing, eye pain, eye redness, hearing loss, mouth pain, mouth swelling, nasal discharge, nose bleeding, nose congestion, nose pain, photophobia, tearing, throat pain, throat swelling, voice changes, others Respiratory: denies: cough, hemoptysis, orthopnea, SOB at rest, shortness of breath, SOB with excertion, stridor, wheezing, others Cardiovascular: reports: chest pain; denies: dizzy spells, diaphoresis, Dyspnea on exertion, edema, irregular heart beat, left arm pain, lightheadedness, palpitations, PND, syncope, others Gastrointestinal: denies: abdomen distended, abdominal pain, blood streaked bowels, constipated, diarrhea, dysphagia, difficulty swallowing, hematemesis, melena, nausea, poor appetite, poor fluid intake, rectal bleeding, rectal pain, vomiting, others Genitourinary: denies: abnormal vagina bleeding, burning, dyspareunia, dysuria, flank pain, frequency, hematuria, incontinence, pain, , vagina discharge, urgency, others Neurological: denies: dizziness, fainting, headache, left sided numbness, left sided weakness, numbness, paresthesia, pre-existing deficit, right sided numbness, right sided weakness, seizure, speech problems, tingling, tremors, weakness, others Musculoskeletal: denies: back pain, gout, joint pain, joint swelling, muscle pain, muscle stiffness, neck pain, others Integumetry: denies: bruises, change in color, change in hair/nails, dryness, laceration, lesions, lumps, rash, wounds, others Allergic/Immunocompromised: denies: Difficulty Healing, Frequent Infections, Hives, Itching, others Hematologic/Lymphatic: denies: anemia, blood clots, easy bleeding, easy bruising, swollen glands, others Endocrine: denies: excessive hunger, excessive sweating, excessive thirst, excessive urination, flushing, intolerance to cold, intolerance to heat, unexplained weight gain, unexplained weight loss, others Psychiatric: denies: anxiety, bipolar disorder, depression, hopeless, panic disorder, schizophrenia, sleepless, suicidal, others All Other Systems: Reviewed and Negative Physical Exam General Appearance: Mild Distress, Normal HEENT: Normal ENT Inspection, Pharynx Normal, TMs Normal Neck: Full Range of Motion, Non-Tender, Normal, Normal Inspection Respiratory: Chest Non-Tender, Lungs Clear, No Accessory Muscle Use, No R espiratory Distress, Normal Breath Sounds Cardiovascular: No Edema, No JVD, No Murmur, No Gallop, Normal Peripheral Pulses, Regular Rate/Rhythm Breast Exam: Deferred Gastrointestinal: Other (soft gravid nontender uterus) Genitalia: Deferred Pelvic: Deferred Rectal: Deferred Extremities: No calf tenderness, Normal capillary refill, Normal inspection, Normal range of motion, Non-tender, No pedal edema Musculoskeletal : Apperance: Normal Neurologic: Alert, asbestos shingle inspector II-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 Was a procedure done?: No CP Differential Dx Differential Diagnosis: A-fib, A-Flutter, Angina, Anxiety / Panic Attack Differential Diagnosis: Chest Wall Pain, Costochondritis, Esophageal reflux/spasm, Gastritis, Pericarditis X-Ray, Labs, Meds, VS Vital Signs Date Time Temp Pulse Resp B/P (MAP) Pulse Ox O2 Delivery O2 Flow Rate FiO2 05/26/24 15:43 Room Air* 0 21 05/26/24 13:00 98.5 103 16 111/73 (86) 99 98.5 05/26/24 13:00 103 05/26/24 12:03 98.0 100 20 135/77 (96) 95 05/26/24 12:02 107 Lab Test 05/26/24 12:54 05/26/24 12:00 05/26/24 00:00 Range/Units Troponin I High Sensitivity 9 9 </=34 ng/L White Blood Count 8.6 4.4-10.8 10^3/uL Red Blood Count 4.09 4.0-5.20 10^6/uL Hemoglobin 11.7 L 12.2-16.2 g/dL Hematocrit 34.2 L 36.0-46.0 % Mean Corpuscular Volume 83.5 80.0-100.0 fL Mean Corpuscular Hemoglobin 28.6 28.0-32.0 pg Mean Corpuscular Hemoglobin Concent 34.2 32.0-36.0 g/dL Red Cell Distribution Width 14.8 H 11.8-14.3 % Platelet Count 314 140-450 10^3/uL Mean Platelet Volume 7.9 6.9-10.8 fL Neutrophils (%) (Auto) 72.0 37.0-80.0 % Lymphocytes (%) (Auto) 22.4 10.0-50.0 % Monocytes (%) (Auto) 4.2 0.0-12.0 % Eosinophils (%) (Auto) 1.1 0.0-7.0 % Basophils (%) (Auto) 0.3 0.0-2.0 % Neutrophils # (Auto) 6.2 1.6-8.6 10 ^3/uL Lymphocytes # (Auto) 1.9 0.4-5.4 10 ^3/uL Monocytes # (Auto) 0.4 0-1.3 10 ^3/uL Eosinophils # (Auto) 0.1 0-0.8 10 ^3/uL Basophils # (Auto) 0 0-0.2 10 ^3/uL Nucleated Red Blood Cells 0.0 % D-Dimer, Quantitative 0.30 0.0-0.49 mg/L FEU Sodium Level 136 136-145 mmol/L Potassium Level 3.9 3.5-5.1 mmol/L Chloride Level 104 98-107 mmol/L Carbon Dioxide Level 24 20-31 mmol/L Anion Gap 8 5-15 Blood Urea Nitrogen 8 L 9-23 mg/dL Creatinine 0.53 L 0.550-1.02 mg/dL Glomerular Filtration Rate Calc 127 >90 mL/min BUN/Creatinine Ratio 15.1 10.0-20.0 Serum Glucose 89 74-106 mg/dL Calcium Level 9.6 8.7-10.4 mg/dL Total Bilirubin 0.4 0.2-1.0 mg/dL Aspartate Amino Transferase (AST) 24 13-40 U/L Alanine Aminotransferase (ALT) 18 7-40 U/L Alkaline Phosphatase 67 46-116 U/L Total Protein 7.4 5.7-8.2 g/dL Albumin 4.5 3.2-4.8 g/dL Beta HCG, Quantitative 4486.7 H 1.5-4.2 mIU/mL Urine Color Yellow Yellow Urine Clarity Turbid H Clear Urine pH 7.0 5.0-9.0 Urine Specific [place] 1.023 1.001-1.035 Urine Protein Trace H Negative Urine Ketones Negative Negative Urine Blood Negative Negative /uL Urine Nitrite Negative Negative Urine Bilirubin Negative Negative Urine Urobilinogen Normal Negative mg/dL Urine Leukocyte Esterase 2+ Negative /uL Urine RBC 1 0 - 4 /hpf Urine Microscopic WBC 2 0-5 /HPF Urine Squamous Epithelial Cells Mod <5 /hpf Urine Bacteria None seen None Seen /hpf Urine Hyaline Casts Few 0 - 2 /lpf Urine Glucose Normal Normal mg/dL Current Medications Medications (Trade) Dose Ordered Sig/[place] Route Start Time Stop Time Status Last Admin Sodium Chloride 1,000 ml @ 1,000 mls/hr Q1H ONCE IV 05/26/24 12:15 05/26/24 13:14 DC 05/26/24 12:15 Time of 1ST Reevaluation: 14:40 Reevaluation 1ST: Unchanged Time of 2ND Reevaluation: 15:40 Reevaluation 2ND: Improved Patient Education/Counseling: Diagnosis, Treatment Family Education/Counseling: No Family Present Departure 1 Departure Time of Disposition: 15:40 Impression: Primary Impression: Palpitations Additional Impressions: PVCs (premature ventricular contractions) 27 weeks gestation of Disposition: 01 HOME / SELF CARE / HOMELESS Condition: Stable Discharged With: Self Critical Care Note Critical Care Time?: No Stability Stability form required: No Heart Score Heart Score: Heart Score Response (Comments) Value History Slightly Suspicious 0 EKG Normal 0 Age <45 0 Risk Factors No known risk factors 0 Troponin Normal limit 0 Total 0 I personally scribed for BRAYDEN STOKES MD ([email or web address]) on 05/26/24 at 14:10. Electronically submitted by Suzanne Frost ([email or web address]). BRAYDEN STOKES MD May 26, 2024 14:10
--- NOTE | 2024-05-26 22:20 | ECG ---
[facility] Test Date: 2024-05-26 Test Time: 12:02:53 Pat Name: LAMBERTO SANON Department: ER Room: Gender: F [place] Reamer: CHELSEA : 1990 Requested By: BRAYDEN STOKES Order Number: [id number] Reading MD: Yandel Hernández Measurements Intervals [place] Rate: 107 P: 39 NV: 132 QRS: 38 QRSD: 93 T: 10 QT: 341 QTc: 455 Interpretive Statements Sinus tachycardia Low voltage, precordial leads Borderline T abnormalities, anterior leads Electronically Signed On 05-27-2024 8:55:11 PST by Yandel Hernández Please click the below link to view image of tracing.
== END 2024-05-26 15:43 | disposition home or self-care (01) ==
LOC: ER 11:52
DX: O99.412 Diseases of the circulatory system complicating pregnancy, second trimester (principal); I49.3 Ventricular premature depolarization; R00.2 Palpitations; Z3A.27 27 weeks gestation of pregnancy; Z88.5 Allergy status to narcotic agent
CPT/HCPCS: 36415; 80053; 81001; 84484; 84702; 85025; 85379; 93005; 96360; 99284; J7030

== ENCOUNTER 2024-06-18 07:37 | Emergency (ER) | payer MEDICAID ==
[~2024-06-18] VITALS: Ht 162.6 cm; Wt 93.9 kg
[2024-06-18 07:56] VITALS: BP 131/78; PULSE 96; RESP 17; TEMP 97.9; O2SAT 98
--- NOTE | 2024-06-18 08:09 | ED.PDOC ---
Eye-HPI HPI Comments A 34 YEAR OLD FEMALE PRESENTS TO THE ED WITH CHIEF COMPLAINT OF EAR PAIN. PATIENT REPORTS THAT SHE HAD BEEN DRIVING UP HILL WHEN AFTER HER OBGYN APPOINTMENT AND SHE FELT A POP IN HER RIGHT EAR WITH IMMEDIATE PAIN YESTERDAY. PATIENT RELAYS THAT HER PAIN HAS SINCE STARTED TO RADIATE TO HER RIGHT JAW. PATIENT STATES SHE IS CURRENTLY AND HAS ONLY TAKEN TYLENOL FOR SOME PAIN RELIEF. PATIENT DENIES ANY N/V, SORE THROAT, FEVER, CHILLS, OR DIZZINESS. NO OTHER SYMPTOMS REPORTED AT THIS TIME OF CARE. Chief Complaint: Earache Time Seen by MD: 08:01 Primary Care Provider: [facility] Reviewed Notes: Nurses Notes, Medications, Allergies Allergies: Coded Allergies: Codeine (Verified Allergy, Unknown, 05/02/21) Home Meds Active Scripts Ibuprofen Micronized (Ibuprofen) 800 Mg Tab, 800 MG PO Q6HR PRN, #20 TAB Prov:MERCY JAIME DO 01/16/22 Docusate Sodium (Docusate Sodium) 100 Mg Cap, 100 MG PO HS PRN, #30 CAP Prov:MERCY JAIME DO 01/16/22 Acetaminophen (Tylenol 8 Hour Arthritis) 650 Mg Tab, 650 MG PO TID, #30 TAB Prov:NORBERTO ALONZO 12/16/21 Amoxicillin & Pot Clavulanate (Amoxicillin/Potassium Cla) 875 Mg Tab, 875 MG PO BID, #20 TAB Prov:NORBERTO ALONZO 12/16/21 Information Source: Patient Mode of Arrival: Ambulatory Timing: Days Duration: Since onset Prehospital treatment: None Quality: Pain, Red Lids: Normal Conjunctiva: Normal Cornea: Normal Pupils: Normal EOM: Normal Fundus: Normal Anterior chamber: Normal ENT Ear Exam: Normal, Red, Bulging, Dull, Normal Onset: Spontaneous Throat Exposed to: None History of: None Associated signs and symptoms: Ear Pain Past Medical History PAST MEDICAL HISTORY: Denies Surgical History: Denies all surgeries STAIN DIPPER History: Denies all STAIN DIPPER Hx Family History Family History: Family hx of DM, Family hx of heart kim, Family hx of HTN Social History Smoker: Non-Smoker Alcohol: Denies ETOH Use Drugs: Denies Drug Use Lives In: Home Constitutional: denies: chills, diaphoresis, fatigue, fever, malaise, sweats, weakness, others EENTM: reports: ear pain; denies: blurred vision, double vision, ear bleeding, ear discharge, ear drainage, ear ringing, eye pain, eye redness, hearing loss, mouth pain, mouth swelling, nasal discharge, nose bleeding, nose congestion, nose pain, photophobia, tearing, throat pain, throat swelling, voice changes, others Respiratory: denies: cough, hemoptysis, orthopnea, SOB at rest, shortness of breath, SOB with excertion, stridor, wheezing, others Cardiovascular: denies: chest pain, dizzy spells, diaphoresis, Dyspnea on exertion, edema, irregular heart beat, left arm pain, lightheadedness, palpitations, PND, syncope, others Gastrointestinal: denies: abdomen distended, abdominal pain, blood streaked bowels, constipated, diarrhea, dysphagia, difficulty swallowing, hematemesis, melena, nausea, poor appetite, poor fluid intake, rectal bleeding, rectal pain, vomiting, others Genitourinary: reports: ; denies: abnormal vagina bleeding, burning, dyspareunia, dysuria, flank pain, frequency, hematuria, incontinence, pain, vagina discharge, urgency, others Neurological: denies: dizziness, fainting, headache, left sided numbness, left sided weakness, numbness, paresthesia, pre-existing deficit, right sided numbness, right sided weakness, seizure, speech problems, tingling, tremors, weakness, others Musculoskeletal: denies: back pain, gout, joint pain, joint swelling, muscle pain, muscle stiffness, neck pain, others Integumetry: denies: bruises, change in color, change in hair/nails, dryness, laceration, lesions, lumps, rash, wounds, others Allergic/Immunocompromised: denies: Difficulty Healing, Frequent Infections, Hives, Itching, others Hematologic/Lymphatic: denies: anemia, blood clots, easy bleeding, easy bruising, swollen glands, others Endocrine: denies: excessive hunger, excessive sweating, excessive thirst, excessive urination, flushing, intolerance to cold, intolerance to heat, unexplained weight gain, unexplained weight loss, others Psychiatric: denies: anxiety, bipolar disorder, depression, hopeless, panic disorder, schizophrenia, sleepless, suicidal, others All Other Systems: Reviewed and Negative Physical Exam General Appearance: No Apparent Distress, Normal HEENT: PERRL/EOMI, TM Abnormal (R) (ERYTHEMA AND DULL WITH MILD EFFUSION OF RIGHT EAR CANAL, NO DRAINAGE BLOOD CLOTS. ) Neck: Full Range of Motion, Non-Tender, Normal, Normal Inspection Respiratory: Chest Non-Tender, Lungs Clear, No Accessory Muscle Use, No Respiratory Distress, Normal Breath Sounds Cardiovascular: No Edema, No JVD, No Murmur, No Gallop, Normal Peripheral Pulses, Regular Rate/Rhythm Breast Exam: Deferred Gastrointestinal: No Organomegaly, Non Tender, No Pulsatile Mass, Normal Bowel Sounds, Soft Genitalia: Deferred Pelvic: Deferred Rectal: Deferred Extremities: No calf tenderness, Normal capillary refill, Normal inspection, Normal range of motion, Non-tender, No pedal edema Musculoskeletal : Apperance: Normal Neurologic: Alert, roster clerk II-XII nml as Tested, No Motor Deficits, Normal Affect, Normal Mood, No Sensory Deficits Cerebellar Function: Normal Reflexes: Normal Skin: Dry, Normal Color, Warm Peripheral Pulses: 2+ carotid (R), 2+ carotid (L) Lymphatic: No Adenopathy Was a procedure done? Was a procedure done?: No EENT DIFF Eye: Other Ear: Otitis Externa, Otitis Media, Pharyngitis X-Ray, Labs, Meds, VS Vital Signs Date Time Temp Pulse Resp B/P (MAP) Pulse Ox O2 Delivery O2 Flow Rate FiO2 06/18/24 07:56 97.9 96 17 131/78 (95) 98 97.9 06/18/24 07:56 96 17 98 Room Air 06/18/24 07:44 97.9 96 17 131/78 (95) 98 X-Ray, Labs, Meds, VS Comment EXTERNAL MEDICAL RECORDS REVIEWED: [NONE] INDEPENDENT HISTORIANS: [NONE] SOCIAL DETERMINANTS OF HEALTH: [NONE] LABS ORDERED: NONE REVIEWED AND INTERPRETED RESULTS: NONE IMAGING ORDERED: NONE TREATMENTS ORDERED: TYLENOL 1G PO PROCEDURES PERFORMED: NONE CRITICAL CARE TIME: NONE I HAVE DISCUSSED THE PATIENT WITH THE ATTENDING PHYSICIAN DR. SWANSON AND HE AGREES WITH THE PATIENT'S PLAN OF CARE AND DISPOSITION. BASED ON HISTORY OF PRESENT ILLNESS, AND PHYSICAL EXAM, PATIENT WILL BE DISCHARGED HOME. DISCUSSED PLAN FOR DISCHARGE HOME WITH RX [facility]. MEDICATION WARNINGS GIVEN. SHARED DECISION MAKING: DISCUSSED WITH PATIENT THAT THEIR WORKUP WAS NORMAL. PATIENT INSTRUCTED TO FOLLOW UP WITH PRIMARY CARE PROVIDER IN 1-2 DAYS FOR RE- EVALUATION OF SYMPTOMS. PATIENT VERBALIZES UNDERSTANDING TO RETURN TO ED FOR NEW OR WORSENING SYMPTOMS OR IF FOLLOW UP WITH PCP CANNOT BE OBTAINED. PATIENT FEELS COMFORTABLE GOING HOME AT THIS TIME. ALL QUESTIONS ADDRESSED AT TIME OF DISCHARGE. Time of 1ST Reevaluation: 08:15 Reevaluation 1ST: Unchanged Patient Education/Counseling: Diagnosis, Treatment, Need For Follow Up Family Education/Counseling: Diagnosis, Treatment, Need For Follow Up, No Family Present Medical Screening: No EMC Exist At This Time Departure 1 Departure Time of Disposition: 08:16 Impression: Primary Impression: Otitis externa of right ear Qualified Codes: H60.501 - Unspecified acute noninfective otitis externa, right ear Disposition: HOME / SELF CARE / HOMELESS Condition: Stable Additional Instructions: FOLLOW-UP WITH PCP IN 1 TO 2 DAYS. TAKE MEDICATIONS PRESCRIBED. RETURN TO ED FOR ANY NEW OR WORSENING SYMPTOMS. e-Prescriptions Acetaminophen (Tylenol Extra Strength Fo) 500 Mg Tab 1000 MG PO BID, #30 TAB Prov: NORBERTO ALONZO 06/18/24 Ciprofloxacin-Hydrocortisone (Cipro Hc 0.2-1 %) 1 Kely Kely 4 KELY OT BID, #7.5 ML Prov: NORBERTO ALONZO 06/18/24 Discharged With: Self Critical Care Note Critical Care Time?: No Stability Stability form required: No Heart Score Heart Score: Heart Score Response (Comments) Value History N/A 0 EKG N/A 0 Age N/A 0 Risk Factors N/A 0 Troponin N/A 0 Total 0 I personally scribed for NORBERTO ALONZO ([email or web address]) on 06/18/24 at 08:09. Electronically submitted by Salvador Cloud ([email or web address]). NORBERTO ALONZO Jun 18, 2024 08:09
[2024-06-18] MEDS: ACETAMINOPHEN 325 MG TAB PO ONE (08:10)
[2024-06-18] MEDS ORDERED: ACET-1304 PO (08:16)
[2024-06-18] MEDS ORDERED: CIPRSUS OT (08:16)
== END 2024-06-18 08:19 | disposition home or self-care (01) ==
LOC: ER 07:37
DX: O26.893 Other specified pregnancy related conditions, third trimester (principal); H60.91 Unspecified otitis externa, right ear; Z3A.30 30 weeks gestation of pregnancy; Z88.5 Allergy status to narcotic agent

== ENCOUNTER 2024-07-21 10:25 | Emergency (ER) | payer MEDICAID ==
[~2024-07-21] VITALS: Ht 170.2 cm; Wt 201.2 kg
[~2024-07-21 10:25] MED LIST changes: +ACET-1304 PO; +CIPRSUS OT
--- NOTE | 2024-07-21 10:55 | ED.PDOC ---
History of Present Illness HPI Comments This is a 34-year-old female who comes in with chief complaint of feeling somewhat dehydrated and a little tachycardic. The patient was approximately 35 weeks and states that on Saturday she tested positive for COVID. She now has a migraine as well as vomiting. She feels very weak from the vomiting. She denies any diarrhea. The patient tried some acetaminophen without any results of relief for the headache. Chief Complaint: Flu like Time Seen by MD: 10:40 Primary Care Provider: [facility] Reviewed Notes: Nurses Notes, Medications, Allergies (Allergies to codeine) Allergies: Coded Allergies: Codeine (Verified Allergy, Unknown, 05/02/21) Home Meds Active Scripts Acetaminophen (Tylenol Extra Strength Fo) 500 Mg Tab, 1000 MG PO BID, #30 TAB Prov:NORBERTO ALONOZ 06/18/24 Ciprofloxacin-Hydrocortisone (Cipro Hc 0.2-1 %) 1 Kely Kely, 4 KELY OT BID, #7.5 ML Prov:NORBERTO ALONZO 06/18/24 Ibuprofen Micronized (Ibuprofen) 800 Mg Tab, 800 MG PO Q6HR PRN, #20 TAB Prov:MERCY JAIME DO 01/16/22 Docusate Sodium (Docusate Sodium) 100 Mg Cap, 100 MG PO HS PRN, #30 CAP Prov:MERCY JAIME DO 01/16/22 Acetaminophen (Tylenol 8 Hour Arthritis) 650 Mg Tab, 650 MG PO TID, #30 TAB Prov:NORBERTO ALONZO 12/16/21 Amoxicillin & Pot Clavulanate (Amoxicillin/Potassium Cla) 875 Mg Tab, 875 MG PO BID, #20 TAB Prov:NORBERTO ALONZO 12/16/21 Information Source: Patient Mode of Arrival: Ambulatory Severity: Moderate Timing: Days Duration: Since onset Prehospital treatment: None Location: Diffuse headache Associated signs and symptoms Associated vomiting and weakness Past Medical History Past Medical History (Other): Gestational hypertension Surgical History: Denies all surgeries ANIMAL SHELTER MANAGER History: Denies all ANIMAL SHELTER MANAGER Hx Family History Family History: Family hx of DM, Family hx of heart kim, Family hx of HTN Social History Smoker: Non-Smoker Alcohol: Denies ETOH Use Drugs: Denies Drug Use Lives In: Home Constitutional: reports: weakness; denies: chills, diaphoresis, fatigue, fever, malaise, sweats, others EENTM: denies: blurred vision, double vision, ear bleeding, ear discharge, ear drainage, ear pain, ear ringing, eye pain, eye redness, hearing loss, mouth pain, mouth swelling, nasal discharge, nose bleeding, nose congestion, nose pain, photophobia, tearing, throat pain, throat swelling, voice changes, others Respiratory: denies: cough, hemoptysis, orthopnea, SOB at rest, shortness of breath, SOB with excertion, stridor, wheezing, others Cardiovascular: denies: chest pain, dizzy spells, diaphoresis, Dyspnea on exertion, edema, irregular heart beat, left arm pain, lightheadedness, palpitations, PND, syncope, others Gastrointestinal: reports: nausea, vomiting; denies: abdomen distended, abd ominal pain, blood streaked bowels, constipated, diarrhea, dysphagia, difficulty swallowing, hematemesis, melena, poor appetite, poor fluid intake, rectal bleeding, rectal pain, others Genitourinary: reports: ; denies: abnormal vagina bleeding, burning, dyspareunia, dysuria, flank pain, frequency, hematuria, incontinence, pain, vag yas discharge, urgency, others Neurological: denies: dizziness, fainting, headache, left sided numbness, left sided weakness, numbness, paresthesia, pre-existing deficit, right sided numbness, right sided weakness, seizure, speech problems, tingling, tremors, weakness, others Musculoskeletal: denies: back pain, gout, joint pain, joint swelling, muscle pain, muscle stiffness, neck pain, others Integumetry: denies: bruises, change in color, change in hair/nails, dryness, laceration, lesions, lumps, rash, wounds, others Allergic/Immunocompromised: denies: Difficulty Healing, Frequent Infections, Hives, Itching, others Hematologic/Lymphatic: denies: anemia, blood clots, easy bleeding, easy bruising, swollen glands, others Endocrine: denies: excessive hunger, excessive sweating, excessive thirst, excessive urination, flushing, intolerance to cold, intolerance to heat, unexplained weight gain, unexplained weight loss, others Psychiatric: denies: anxiety, bipolar disorder, depression, hopeless, panic disorder, schizophrenia, sleepless, suicidal, others Physical Exam General Appearance: Mild Distress HEENT: Normal ENT Inspection, Pharynx Normal, TMs Normal Neck: Full Range of Motion, Non-Tender, Normal, Normal Inspection Respiratory: Chest Non-Tender, Lungs Clear, No Accessory Muscle Use, No Respiratory Distress, Normal Breath Sounds Cardiovascular: No Edema, No JVD, No Murmur, No Gallop, Normal Peripheral Pulses, Regular Rate/Rhythm Breast Exam: Deferred Gastrointestinal: Non Tender, No Pulsatile Mass, Normal Bowel Sounds, Soft, Other ( uterus) Genitalia: Deferred Pelvic: Deferred Rectal: Deferred Extremities: No calf tenderness, Normal capillary refill, Normal inspection, Normal range of motion, Non-tender, No pedal edema Musculoskeletal : Apperance: Normal Neurologic: Alert, heading saw operator II-XII nml as Tested, Motor Weakness, Normal Affect, Normal Mood, No Sensory Deficits Cerebellar Function: Normal Reflexes: Normal Skin: Dry, Normal Color, Warm Lymphatic: No Adenopathy Was a procedure done? Was a procedure done?: No EKG EKG : Pulse Rate (adult): 135 [place]: Normal Cardiac Rhythm: ST Block: None ST: Nonsp Differential Dx Considerations may include: Generalized weakness, COVID-19, viral syndrome, dehydration X-Ray, Labs, Meds, VS Vital Signs Date Time Temp Pulse Resp B/P (MAP) Pulse Ox O2 Delivery O2 Flow Rate FiO2 07/21/24 12:15 100.5 102 28 111/68 (82) 97 100.5 07/21/24 11:15 20 98 Room Air* 0 21 07/21/24 10:55 135 07/21/24 10:35 135 07/21/24 10:34 98.4 130 17 112/69 (83) 98 98.4 Lab Test 07/21/24 11:22 Range/Units White Blood Count 7.5 4.4-10.8 10^3/uL Red Blood Count 3.89 L 4.0-5.20 10^6/uL Hemoglobin 10.7 L 12.2-16.2 g/dL Hematocrit 32.1 L 36.0-46.0 % Mean Corpuscular Volume 82.5 80.0-100.0 fL Mean Corpuscular Hemoglobin 27.6 L 28.0-32.0 pg Mean Corpuscular Hemoglobin Concent 33.4 32.0-36.0 g/dL Red Cell Distribution Width 14.8 H 11.8-14.3 % Platelet Count 249 140-450 10^3/uL Mean Platelet Volume 8.1 6.9-10.8 fL Neutrophils (%) (Auto) 85.3 H 37.0-80.0 % Lymphocytes (%) (Auto) 10.4 10.0-50.0 % Monocytes (%) (Auto) 2.9 0.0-12.0 % Eosinophils (%) (Auto) 1.0 0.0-7.0 % Basophils (%) (Auto) 0.4 0.0-2.0 % Neutrophils # (Auto) 6.4 1.6-8.6 10 ^3/uL Lymphocytes # (Auto) 0.8 0.4-5.4 10 ^3/uL Monocytes # (Auto) 0.2 0-1.3 10 ^3/uL Eosinophils # (Auto) 0.1 0-0.8 10 ^3/uL Basophils # (Auto) 0 0-0.2 10 ^3/uL Nucleated Red Blood Cells 0.0 % Sodium Level 137 136-145 mmol/L Potassium Level 3.8 3.5-5.1 mmol/L Chloride Level 103 98-107 mmol/L Carbon Dioxide Level 22 20-31 mmol/L Anion Gap 12 5-15 Blood Urea Nitrogen 6 L 9-23 mg/dL Creatinine 0.55 0.550-1.02 mg/dL Glomerular Filtration Rate Calc 125 >90 mL/min BUN/Creatinine Ratio 10.9 10.0-20.0 Serum Glucose 78 74-106 mg/dL Calcium Level 9.3 8.7-10.4 mg/dL Current Medications Medications (Trade) Dose Ordered Sig/[place] Route Start Time Stop Time Status Last Admin Sodium Chloride 1,000 ml @ 1,000 mls/hr Q1H ONCE IV 07/21/24 11:00 07/21/24 11:59 DC 07/21/24 11:34 Ondansetron HCl (Zofran) 4 mg ONCE ONCE IV 07/21/24 11:00 07/21/24 11:01 DC 07/21/24 11:35 IV Hep-Lock was established The patient was given a 1 L bolus of normal saline The patient was given Zofran 4 mg IV push We did call labor and delivery to do some monitoring on the patient. The patient's CBC and chemistry panel are within normal limits The patient is being discharged at this time The patient will follow up with the primary care doctor The patient did have normal monitoring The patient will return to the emergency department's the condition worsens Time of 1ST Reevaluation: 10:54 Reevaluation 1ST: Improved Patient Education/Counseling: Diagnosis, Treatment, Prognosis, Need For Follow Up Family Education/Counseling: No Family Present Departure 1 Departure Time of Disposition: 13:33 Impression: Primary Impression: Dehydration Additional Impressions: COVID-19 Qualified Codes: Z34.90 - Encounter for supervision of normal , unspecified, unspecified trimester Disposition: 01 HOME / SELF CARE / HOMELESS Condition: Fair Discharged With: Self Critical Care Note Critical Care Time?: No Stability Stability form required: No Heart Score Heart Score: Heart Score Response (Comments) Value History N/A 0 EKG N/A 0 Age N/A 0 Risk Factors N/A 0 Troponin N/A 0 Total 0 STEFANO CHAUHAN MD Jul 21, 2024 10:55
[2024-07-21 11:15] VITALS: RESP 20; O2SAT 98
[2024-07-21] MEDS: HYDROcodone-ACET 5/325MG TAB PO ONE (11:31)
[2024-07-21] MEDS: SODIUM CHLORIDE 0.9% 1,000 ML IV ONE (11:34)
[2024-07-21] MEDS: ONDANSETRON HCL 4 MG/2 ML VIAL IV ONE (11:35)
[2024-07-21 11:40] LABS: Basophils # (auto) 0 10 ^3/uL (0-0.2); Basophils % (auto) 0.4 % (0.0-2.0); Eosinophils # (auto) 0.1 10 ^3/uL (0-0.8); Hematocrit 32.1 % (36.0-46.0); Hemoglobin 10.7 g/dL (12.2-16.2); Lymphocytes # (auto) 0.8 10 ^3/uL (0.4-5.4); Lymphocytes % (auto) 10.4 % (10.0-50.0); Mean Corpuscular Hemoglobin 27.6 pg (28.0-32.0); Mean Corpuscular Hgb Conc. 33.4 g/dL (32.0-36.0); Mean Corpuscular Volume 82.5 fL (80.0-100.0); Monocytes # (auto) 0.2 10 ^3/uL (0-1.3); Monocytes % (auto) 2.9 % (0.0-12.0); Neutrophils # (auto) 6.4 10 ^3/uL (1.6-8.6); Neutrophils % (auto) 85.3 % (37.0-80.0); Platelet Count (auto) 249 10^3/uL (140-450); Red Blood Cells 3.89 10^6/uL (4.0-5.20); Red Cell Distribution Width 14.8 % (11.8-14.3); White Blood Cell 7.5 10^3/uL (4.4-10.8)
[2024-07-21 11:48] LABS: Chloride 103 mmol/L (98-107); Potassium 3.8 mmol/L (3.5-5.1); Sodium 137 mmol/L (136-145)
[2024-07-21 11:49] LABS: Anion Gap 12 (5-15); Calcium 9.3 mg/dL (8.7-10.4); Carbon Dioxide 22 mmol/L (20-31)
[2024-07-21 11:54] LABS: BUN/Creatinine Ratio 10.9 (10.0-20.0); Glucose 78 mg/dL (74-106)
[2024-07-21 11:57] LABS: Blood Urea Nitrogen 6 mg/dL (9-23)
[2024-07-21 12:15] VITALS: BP 111/68; PULSE 102; RESP 28; TEMP 100.5; O2SAT 97
--- NOTE | 2024-07-22 18:47 | ECG ---
[facility] Test Date: 2024-07-21 Test Time: 10:35:52 Pat Name: LAMBERTO SANON Department: ER Room: Gender: F [place] Inspector: HEATHER : 1990 Requested By: STEFANO CHAUHAN Order Number: [id number] Reading MD: Measurements Intervals [place] Rate: 135 P: 64 RI: 125 QRS: 1 QRSD: 98 T: -24 QT: 312 QTc: 468 Interpretive Statements Sinus tachycardia Borderline T abnormalities, diffuse leads Please click the below link to view image of tracing.
== END 2024-07-21 13:50 | disposition home or self-care (01) ==
LOC: ER 10:25
DX: O98.513 Other viral diseases complicating pregnancy, third trimester (principal); U07.1 COVID-19; O99.353 Diseases of the nervous system complicating pregnancy, third trimester; E86.0 Dehydration; Z79.899 Other long term (current) drug therapy; Z88.5 Allergy status to narcotic agent; Z3A.35 35 weeks gestation of pregnancy
CPT/HCPCS: 36415; 80048; 85025; 93005; 96361; 96374; 99284; J2405; J7030